=== PATIENT | female | born 1985 | race Hispanic/Latino ===

== ENCOUNTER 2018-04-02 21:52 | Emergency (ER) | payer MEDICAID, OTHER ==
[~2018-04-02 21:52] MED LIST: INSU100C6 SQ; INSU100V12 SQ
[2018-04-02] MEDS ORDERED: IBUPROFEN 600 MG TABLET ONE (23:44)
[2018-04-03] MEDS ORDERED: TETANUS/DIPHTHERIA TOXOID [ADULT] 0.5 ML VIAL IM ONE (00:37)
== END 2018-04-03 00:57 | disposition home or self-care (01) ==
LOC: EDH 21:52
DX: S81.812A Laceration without foreign body, left lower leg, initial encounter (principal); E11.9 Type 2 diabetes mellitus without complications; Z88.6 Allergy status to analgesic agent; Z79.4 Long term (current) use of insulin; W22.8XXA Striking against or struck by other objects, initial encounter; Y93.89 Activity, other specified; Y92.89 Other specified places as the place of occurrence of the external cause; Y99.8 Other external cause status
CPT/HCPCS: 90471; 90714